=== PATIENT | male | born 1990 | race Caucasian/White ===

== ENCOUNTER 2023-06-26 15:41 | Emergency (ER) | payer MEDICAID ==
[~2023-06-26] VITALS: Ht 185.4 cm; Wt 113.1 kg
[2023-06-26 16:11] VITALS: BP 115/70; PULSE 80; RESP 20; TEMP 97.9; O2SAT 96
[2023-06-26] MEDS ORDERED: HYDROcodone/APAP 5/325 MG 1 TAB TAB PO ONE (16:55)
[2023-06-26] MEDS ORDERED: NAPR-54 PO (17:38)
[2023-06-26] MEDS ORDERED: HYDROcodone/APAP 5/325 MG 1 TAB TAB ONE (18:27)
[2023-06-26 18:30] VITALS: BP 115/70; PULSE 80; RESP 20; TEMP 97.9; O2SAT 96
== END 2023-06-26 18:30 | disposition home or self-care (01) ==
LOC: MED 15:41
DX: M25.531 Pain in right wrist (principal); Z88.0 Allergy status to penicillin; Z79.899 Other long term (current) drug therapy
CPT/HCPCS: 73110; 99283

== ENCOUNTER 2023-06-28 01:10 | Emergency (ER) | payer MEDICAID ==
[~2023-06-28 01:10] MED LIST: NAPR-54 PO
[2023-06-28] MEDS ORDERED: DICL100G32 TP (12:50)
== END 2023-06-28 01:45 | disposition left against medical advice (07) ==
LOC: MED 01:10
DX: M79.603 Pain in arm, unspecified (principal); Z53.21 Procedure and treatment not carried out due to patient leaving prior to being seen by health care provider

== ENCOUNTER 2023-06-28 10:57 | Emergency (ER) | payer MEDICAID ==
[~2023-06-28] VITALS: Ht 185.4 cm; Wt 113.4 kg
[2023-06-28 11:09] VITALS: BP 109/67; PULSE 89; RESP 18; TEMP 97.8; O2SAT 98
[2023-06-28] MEDS ORDERED: KETOROLAC 60 MG/2 ML VIAL IM ONE (12:45)
[2023-06-28] MEDS ORDERED: DICL100G32 TP (12:50)
[2023-06-28 13:00] VITALS: BP 109/67; PULSE 89; RESP 18; TEMP 97.8; O2SAT 98
== END 2023-06-28 13:01 | disposition home or self-care (01) ==
LOC: MED 10:57
DX: M79.641 Pain in right hand (principal); Z88.0 Allergy status to penicillin; Z79.899 Other long term (current) drug therapy
CPT/HCPCS: 99281; J1885